=== PATIENT | male | born 1990 | race African-American/Black ===

== ENCOUNTER 2016-04-28 18:45 | Emergency (ER) | payer MEDICAID ==
[~2016-04-28] VITALS: Ht 162.6 cm; Wt 59.0 kg
[2016-04-28 19:26] VITALS: BP 122/96
[2016-04-28] MEDS ORDERED: KETOROLAC TROMETH 60MG/2ML VIAL IM ONE (20:00)
== END 2016-04-28 23:06 | disposition left against medical advice (07) ==
LOC: ER 18:48
DX: R51 Headache (principal); Z53.21 Procedure and treatment not carried out due to patient leaving prior to being seen by health care provider
CPT/HCPCS: J1885